=== PATIENT | female | born 1995 | race Caucasian/White ===

== ENCOUNTER 2018-06-02 00:18 | Emergency (ER) | payer BC, OTHER ==
[~2018-06-02] VITALS: Ht 167.6 cm; Wt 77.1 kg
--- OUTSIDE RECORDS SUMMARY | 2018-06-02 00:25 | XMS REPORT | Continuity of Care Document ---
Author Organization Unknown Address Unknown Allergies Active Description Code Type Severity Reaction Onset Reported/Identified Relationship to Patient Clinical Status Yes NKA Drug N/A N/A Yes NKA Drug N/A N/A Medications There is no data. Problems Date Dx Coded Attending Type Code Diagnosis Diagnosed By 09/08/2012 EDVIN WALKER DO V03.89 MENINGOCOCCAL DX 09/08/2012 EDVIN WALKER DO V04.89 GARDASIL (HPV) DX 09/08/2012 EDVIN WALKER DO V05.4 VARICELLA DX 09/08/2012 EDVIN WALKER DO V06.1 TDAP DX 11/19/2014 Rosendo Estrada Final Z11.1 Encounter for screening for respiratory tuberculosis Procedures There is no data. Results Test Result Range CMP - 08/30/17 10:35 GLUCOSE 94 mg/dL 65-99 UREA NITROGEN (BUN) 11 mg/dL 7-25 CREATININE 0.65 mg/dL 0.50-1.10 eGFR NON-AFR. MONGOLIAN 125 mL/min/1.73m2 > OR=60 eGFR 145 mL/min/1.73m2 > OR=60 BUN/CREATININE RATIO NOT APPLICABLE (calc) 6-22 SODIUM 138 mmol/L 135-146 POTASSIUM 4.4 mmol/L 3.5-5.3 CHLORIDE 103 mmol/L 98-110 CARBON DIOXIDE 25 mmol/L 20-31 CALCIUM 10.1 mg/dL 8.6-10.2 PROTEIN, TOTAL 7.2 g/dL 6.1-8.1 ALBUMIN 4.8 g/dL 3.6-5.1 GLOBULIN 2.4 g/dL (calc) 1.9-3.7 ALBUMIN/GLOBULIN RATIO 2.0 (calc) 1.0-2.5 BILIRUBIN, TOTAL 0.4 mg/dL 0.2-1.2 ALKALINE PHOSPHATASE 42 U/L 33-115 AST 10 U/L 10-30 ALT 11 U/L 6-29 Encounters ACCT No. Visit Date/Time Discharge Status Pt. Type Provider Facility Loc./Unit Complaint [id number] 01/18/2014 09:52:08 01/18/2014 23:59:59 CLS Outpatient ORLIN MORLEY OB/ [facility] Letty IUD insertion [id number] 01/18/2014 00:00:00 01/18/2014 23:59:59 CLS Outpatient Scanned Documents [id number] 11/20/2014 05:28:04 ACT Document Registration [id number] 09/08/2012 10:11:00 09/08/2012 23:59:59 [place] [id number] 08/30/2017 09:40:00 08/30/2017 23:59:59 CLS Outpatient EDVIN WALKER DO [facility] [id number] 08/30/2017 09:40:00 Document Registration [id number] 11/19/2014 13:32:00 11/19/2014 23:59:00 DIS Outpatient Rosendo Estrada Guarantor/person LAB LAB WORK [id number] 03/07/2014 13:43:20 Document Registration
--- OUTSIDE RECORDS SUMMARY | 2018-06-02 00:25 | XMS REPORT ---
Author Author KARYN HOWELL Organization [facility] Address [address] [place] [address] Care Team Providers Care Insurance Licensing Supervisor Name Role Phone HOWELLKIRSTEN CortesELE Unavailable PROBLEMS Type Condition ICD9-CM Code ZYN95-DW Code Onset Dates Condition Status SNOMED Code Problem Anxiety F41.9 Active 67546006 Problem Frequent headaches R51 Active 711735978 Problem VARICELLA DX V05.4 Active 204644422 Problem DTAP TEST V06.1 Active Problem MENINGOCOCCAL DX V03.89 Active 82960275 Problem GARDASIL (HPV) DX V04.89 Active 195334640 ALLERGIES No Known Allergies ENCOUNTERS Encounter Location Date Diagnosis [place] [id number] [place] [phone] Aug, Frequent headaches R51 ; Anxiety F41.9 and Generalized abdominal pain R10.84 [place] [address] [place] [id number] [place] [phone] Jul, Colitis K52.9 ; Periumbilical abdominal pain R10.33 ; Diarrhea, unspecified R19.7 ; Nausea with vomiting, unspecified R11.2 and Vaginal candidiasis B37.3 [place] [address] [place] [id number] [place] [phone] Nov, [place] [address] [place] [id number] [place] [phone] Aug, IMMUNIZATIONS No Known Immunizations SOCIAL HISTORY Never Assessed REASON FOR VISIT Vomiting and diarrhea x 2 days, running low grade fever ángel coley PLAN OF CARE Activity Details Follow Up prn Reason: VITAL SIGNS Height 65.5 in 2017-08-10 Weight 162.9 lbs 2017-08-10 Temperature 99.1 degrees Fahrenheit 2017-08-10 Heart Rate 80 bpm 2017-08-10 Respiratory Rate 18 2017-08-10 BMI 26.69 kg/m2 2017-08-10 Blood pressure systolic 118 mmHg 2017-08-10 Blood pressure diastolic 70 mmHg 2017-08-10 MEDICATIONS Medication Instructions Dosage Frequency Start Date End Date Duration Status Levofloxacin 750 MG Orally Once a day 1 tablet 24h Jul, Aug, 05 days Active Diflucan 150 MG Orally Once a day 1 tablet today and repeat in 10 days 24h Jul, Jul, 2 days Active Ondansetron 4 MG Orally 3 times a day PRN 1 tablet on the tongue and allow to dissolve as needed Jul, 07 days Active Metronidazole 500 mg Orally Twice a day 1 tablet 12h Jul, Aug, 05 days Active RESULTS Name Result Date Reference Range TEST, URINE (IN HOUSE) 2017-08-10 RESULTS Negative Lot # [id number] Control + Exp date 01/2019 Xray : KUB (IN HOUSE) 2017-08-10 PROCEDURES Procedure Date Ordered Result Body Site X-RAY EXAM ABDOMEN 1 VIEW August 10, 2017 URINE TEST August 10, 2017 INSTRUCTIONS MEDICATIONS ADMINISTERED No Known Medications MEDICAL (GENERAL) HISTORY Type Description Date Medical History Migraines Surgical History adenoidectomy 2007 Surgical History septoplasty 2007
--- OUTSIDE RECORDS SUMMARY | 2018-06-02 00:25 | XMS REPORT ---
Author Author MOIZ CESPEDES Organization [facility] Address [address] [place] [address] Care Team Providers Care Compensator Worker Name Role Phone MOIZ CESPEDES Unavailable PROBLEMS Type Condition ICD9-CM Code KZO24-UR Code Onset Dates Condition Status SNOMED Code Problem Anxiety F41.9 Active 88436276 Problem Frequent headaches R51 Active 833593402 Problem VARICELLA DX V05.4 Active 963011394 Problem DTAP TEST V06.1 Active Problem MENINGOCOCCAL DX V03.89 Active 80388399 Problem GARDASIL (HPV) DX V04.89 Active 153833817 ALLERGIES No Known Allergies ENCOUNTERS Encounter Location Date Diagnosis [id number] [place] [phone] Aug, Frequent headaches R51 ; Anxiety F41.9 and Generalized abdominal pain R10.84 [place] [id number] [place] [phone] Jul, Colitis K52.9 ; Periumbilical abdominal pain R10.33 ; Diarrhea, unspecified R19.7 ; Nausea with vomiting, unspecified R11.2 and Vaginal candidiasis B37.3 [place] [id number] [place] [phone] Nov, [place] [address] [place] [id number] [place] [phone] Aug, IMMUNIZATIONS No Known Immunizations SOCIAL HISTORY Never Assessed REASON FOR VISIT Nausea/Headache, PT reports the last 3 years she has been experincing migraines. PT notes it has worsened this past year that inlcudes 4 out of the 7 days she has bad ones including nausea.PT notes she is bloated all the time along with nausea -Connor CORDERO , PT reports she has alwayas had problems with her gut.-Connor CORDERO PLAN OF CARE Activity Details Follow Up Will call after lab Reason: VITAL SIGNS Height 65.5 in 2017-08-30 Weight 165.6 lbs 2017-08-30 Temperature 98.9 degrees Fahrenheit 2017-08-30 Heart Rate 92 bpm 2017-08-30 Respiratory Rate 18 2017-08-30 Oximetry on room air:99 % 2017-08-30 BMI 27.14 kg/m2 2017-08-30 Blood pressure systolic 120 mmHg 2017-08-30 Blood pressure diastolic 68 mmHg 2017-08-30 MEDICATIONS Medication Instructions Dosage Frequency Start Date End Date Duration Status Excedrin Migraine Active RESULTS No Results PROCEDURES Procedure Date Ordered Result Body Site ASSAY THYROID STIM HORMONE August 30, 2017 COMPLETE CBC W/AUTO DIFF WBC August 30, 2017 VENIPUNCT, ROUTINE* August 30, 2017 COMPREHEN METABOLIC PANEL August 30, 2017 INSTRUCTIONS MEDICATIONS ADMINISTERED No Known Medications MEDICAL (GENERAL) HISTORY Type Description Date Medical History Migraines Surgical History adenoidectomy 2007 Surgical History septoplasty 2007
[2018-06-02] MEDS ORDERED: FLUORESCEIN (FLUOR-I-STRIPS) 1 MG STRP ONE (00:30)
[2018-06-02] MEDS ORDERED: TETRACAINE 0.5% OPHTH SOLN 4 ML BTL (SINGLE DOSE ONLY) ONE (00:31)
--- NOTE | 2018-06-02 00:36 | ED EENT ---
History of Present Illness General Chief Complaint: Eye Problems Stated Complaint: RT EYE PAIN Source: patient Exam Limitations: no limitations History of Present Illness Date Seen by Provider: Jun 02, 2018 Time Seen by Provider: 00:23 Initial Comments Patient presents to ER by private conveyance with chief complaint of right eye itching and pain came up about 30-40 minutes prior to arrival. [place] PACs but she does not recall anything getting flung into her eye. She says it's itching and hurts about 3-4 out of 10. She's never had anything like this before. She has a history of seasonal allergies. She has not taken anything for this. No visual disturbances, blurry vision. Allergies and Home Medications Allergies Coded Allergies: No Known Drug Allergies (Unverified , 06/02/18) Patient Home Medication List Home Medication List Reviewed: Yes Review of Systems Review of Systems Constitutional: No chills, No diaphoresis, No fever Eyes: Denies Blindness, Denies Blurred Vision, Denies Drainage, Denies Decreased Acuity; Inflammation, Pain; Denies Photophobia, Denies Previous Injury Ears: Denies Dizziness, Denies Pain Nose: denies clots, denies congestion Past Oddgbux-Gcokdg-Baqarp Hx Patient Social History Alcohol Use: Denies Use Recreational Drug Use: No Smoking Status: Never a Smoker Recent Foreign Travel: No Contact w/Someone Who Travel: No Physical Exam Vital Signs Vital Signs - First Documented 06/02/18 00:26 Temp 97.2 Pulse 81 Resp 16 B/P (MAP) 139/84 (102) Pulse Ox 98 O2 Delivery Room Air Height, Weight, BMI Height: '" Weight: lbs. oz. kg; BMI Method: General Appearance: WD/WN, no apparent distress Eyes: right eye other (mild inflammation, conjunctival injection, scleral edema on the lateral half of the right eye.); left eye normal inspection; bilateral eye PERRL, bilateral eye EOMI Progress/Results/Core Measures Results/Orders My Orders Orders - LUIS RODRIGUEZ Fluorescein Strips (Npkaj-K-Yhutjf) (06/02/18 00:30) Tetracaine 0.5% Ophth Peggy Sdv (Tetracai (06/02/18 00:31) Tetracaine 0.5% Ophth Peggy Sdv (Tetracai (06/02/18 00:45) Fluorescein Strips (Gsytm-K-Ofqiud) (06/02/18 00:45) Medications Given in ED Current Medications Medications Dose Ordered Sig/Miranda Route Start Time Stop Time Status Last Admin Dose Admin Fluorescein Sodium 1 mg ONCE ONCE OU 06/02/18 00:45 06/02/18 00:46 06/02/18 00:35 1 MG Tetracaine HCl 4 ml ONCE ONCE OU 06/02/18 00:45 06/02/18 00:46 06/02/18 00:35 4 ML Vital Signs/I&O 06/02/18 00:26 Temp 97.2 Pulse 81 Resp 16 B/P (MAP) 139/84 (102) Pulse Ox 98 O2 Delivery Room Air Progress Progress Note : Time: 00:35 Progress Note Looks to be allergic could be viral so we plan to do forcing staining with tetracaine under a Barkley lamp looking for herpetic lesions. If not we'll put her on a steroid/antibacterial drop. She can follow up with optometry in 1-2 days. Barkley lamp examination does not demonstrate any ulceration. Just some mild edema of the right eye. Visual acuity is normal. Departure Impression Primary Impression: Allergic conjunctivitis of right eye Disposition: HOME, SELF-CARE Condition: Stable Departure-Patient Inst. Decision time for Depature: 00:43 Referrals: JH NOGUERA OD,LOCAL PHYSICIAN (PCP) Primary Care Physician Patient Instructions: How to Use Eye Drops, Conjunctivitis (Noninfectious Pinkeye) (DC) Add. Discharge Instructions: back up scan coordinator some eye saline and rinse your eyes out every hour for the next 2-3 days. back up scan coordinator the gatiflox/prenisolone from the pharmacy and put four drops in your right eye every 6 hours. Use Tylenol and/or ibuprofen as well as cold compresses for discomfort. If you have itching sensation you can use Claritin or Zyrtec in addition to Benadryl as necessary. Follow-up with the emergency medicine nurse practitioner in the next 1-2 days by calling their office for an appointment tomorrow morning. All discharge instructions reviewed with patient and/or family. Voiced understanding. Scripts Gatifloxacin/Prednisolone (Prednisolone 1%-Gatiflox 0.5%) 3.5 Ml Drops.susp 2 ML OP Q6H for 7 Days, #1 EA 0 Refills Prov: LUIS RODRIGUEZ 06/02/18 Copy Copies To 1: JH NOGUERA OD LUIS RODRIGUEZ Jun 02, 2018 00:35
[2018-06-02] MEDS ORDERED: TETRACAINE 0.5% OPHTH SOLN 4 ML BTL (SINGLE DOSE ONLY) OU ONE (00:45)
[2018-06-02] MEDS ORDERED: FLUORESCEIN (FLUOR-I-STRIPS) 1 MG STRP OU ONE (00:45)
[2018-06-02] MEDS ORDERED: GATI3.5D2 OP (00:51)
[2018-06-02 01:00] VITALS: BP 117/77
== END 2018-06-02 01:00 | disposition home or self-care (01) ==
LOC: EDUNIT# 00:18 → ER 00:21
DX: H10.11 Acute atopic conjunctivitis, right eye (principal)
CPT/HCPCS: 99282

== ENCOUNTER → 2018-07-18 | Outpatient (CLI) | payer BC ==
[~2018-07-18] MED LIST: GATI3.5D2 OP
--- NOTE | 2018-07-18 11:10 | Diagnostic Imaging Report ---
INDICATION: Left knee pain COMPARISON: None available. TECHNIQUE: Thre radiographs of the left knee are dated 07/18/2018. FINDINGS: No acute fracture or dislocation. No destructive osseous process. The joint spaces are well-maintained. No significant osteophytosis. A moderate sized knee joint effusion is present. No suspicious radiopaque foreign body. IMPRESSION: No acute osseous abnormality although a moderate sized knee joint effusion is present. Dictated by: Dictated on workstation # [id number]
== END ==
LOC: RAD 10:46
PROVIDERS: ATTEND Nurse Practitioner Family
DX: M25.562 Pain in left knee (principal)
CPT/HCPCS: 73562

== ENCOUNTER → 2019-07-25 | Outpatient (CLI) | payer BC ==
--- NOTE | 2019-07-25 11:29 | Diagnostic Imaging Report ---
INDICATION: Right lower quadrant pain Ultrasound of the periappendiceal area was performed. There is no abnormal fluid collection or overt mass lesion. The appendix was not visualized sonographically. IMPRESSION: Nonvisualized appendix. No sonographically evident abnormality in the right lower quadrant. Dictated by: Dictated on workstation # [id number]
--- NOTE | 2019-07-25 11:31 | Diagnostic Imaging Report ---
INDICATION: Right-sided abdominal pain. EXAMINATION: Gallbladder sonography performed in routine fashion. FINDINGS: The liver shows normal echogenicity with no focal lesions. Portal vein is patent with hepatopedal flow. Gallbladder is unremarkable with no stones or significant wall thickening. Common duct measured 4.4 mm. Pancreas is not well seen due to overlying gas. IVC appeared normal. Aorta was obscured by overlying gas. Right kidney was normal in appearance, 11.1 cm in length. There is no ascites. Sonographic Christopher's sign was negative. IMPRESSION: Unremarkable ultrasound of the right upper quadrant. Dictated by: Dictated on workstation # [id number]
--- NOTE | 2019-07-25 11:41 | Diagnostic Imaging Report ---
INDICATION: Pelvic pain. TECHNIQUE: Pelvic sonography was performed with transabdominal and transvaginal views. FINDINGS: The uterus measures 6.8 x 3.3 x 4.2 cm and appears anteverted. There is an IUD in place in the uterus in the endometrial cavity in good position. The endometrium measures 4 mm in thickness. The right ovary was not visualized. The left ovary measures 3.4 x 2.2 x 3.3 cm and contains a simple cyst measuring 2.1 x 1.6 x 1.8 cm. There is color flow to the left ovary. There is no free fluid. IMPRESSION: Normal-appearing uterus. IUD in place in the uterus appears to be in good position. The right ovary is not visualized. The left ovary contains a 2.1 cm simple cyst. There is no free fluid. Dictated by: Dictated on workstation # [id number]
== END ==
LOC: RAD 08:07
PROVIDERS: ATTEND Nurse Practitioner Family
DX: N83.202 Unspecified ovarian cyst, left side (principal); Z97.5 Presence of (intrauterine) contraceptive device
CPT/HCPCS: 76705; 76830; 76856

== ENCOUNTER 2021-12-17 08:28 | Emergency (ER) | payer BC, OTHER ==
[~2021-12-17] VITALS: Ht 167 cm; Wt 82.0 kg
[2021-12-17 09:27] LABS: BASOPHILS # (AUTO) 0.1 10^3/uL (0.0-0.1); BASOPHILS % (AUTO) 1 % (0-10); EOSINOPHILS # (AUTO) 0.2 10^3/uL (0.0-0.3); EOSINOPHILS % (AUTO) 1 % (0-10); HEMATOCRIT 42 % (35-52); HEMOGLOBIN 13.8 g/dL (11.5-16.0); LYMPHOCYTES # (AUTO) 3.5 10^3/uL (1.0-4.0); LYMPHOCYTES % (AUTO) 22 % (12-44); MEAN CORPUSCULAR HEMOGLOBIN 30 pg (25-34); MEAN CORPUSCULAR HGB CONC 33 g/dL (32-36); MEAN CORPUSCULAR VOLUME 92 fL (80-99); MEAN PLATELET VOLUME 12.2 fL (9.0-12.2); MONOCYTES # (AUTO) 1.2 10^3/uL (0.0-1.0); MONOCYTES % (AUTO) 8 % (0-12); NEUTROPHILS # (AUTO) 11.1 10^3/uL (1.8-7.8); NEUTROPHILS % (AUTO) 68 % (42-75); WHITE BLOOD COUNT 16.2 10^3/uL (4.3-11.0)
[2021-12-17] MEDS ORDERED: HYOSCYAMINE 0.125 MG (LEVSIN) TAB SL ONE (09:30)
[2021-12-17] MEDS ORDERED: ONDANSETRON 4 MG/2 ML (SDV) Z0FRAN IVP ONE (09:30)
[2021-12-17] MEDS ORDERED: LACTATED RINGERS 1,000 ML IV ONE (09:30)
[2021-12-17 09:31] LABS: PLATELET COUNT 143 10^3/uL (130-400)
[2021-12-17 09:47] LABS: BAND NEUTROPHILS 0 %; BASOPHILS % (MANUAL) 0 %; EOSINOPHILS % (MANUAL) 0 %; LYMPHOCYTES % (MANUAL) 26 %; MONOCYTES % (MANUAL) 5 %; NEUTROPHILS % (MANUAL) 69 %; RBC MORPH NORMAL
[2021-12-17 10:13] LABS: BILIRUBIN,URINE NEGATIVE (NEGATIVE); CLARITY,URINE CLEAR; COLOR,URINE YELLOW; GLUCOSE, URINE (UA) NEGATIVE (NEGATIVE); KETONES,URINE NEGATIVE (NEGATIVE); LEUKOCYTE ESTERASE ,URINE NEGATIVE (NEGATIVE); NITRITE,URINE NEGATIVE (NEGATIVE); PROTEIN,URINE NEGATIVE (NEGATIVE)
[2021-12-17 10:29] LABS: BACTERIA,URINE NEGATIVE /HPF; SQUAMOUS EPITHELIAL CELL,UR 0-2 /HPF
[2021-12-17 10:52] LABS: BILIRUBIN,TOTAL 0.4 MG/DL (0.1-1.0); CALCIUM 8.9 MG/DL (8.5-10.1); CREATININE SERUM 0.79 MG/DL (0.60-1.30); POTASSIUM 3.8 MMOL/L (3.6-5.0); TOTAL PROTEIN 6.5 GM/DL (6.4-8.2)
[2021-12-17] MEDS ORDERED: fentaNYL INJ 100 MCG/2 ML AMP IVP ONE (11:00)
[2021-12-17] MEDS ORDERED: KETOROLAC 30 MG/ML VIAL IVP ONE (12:15)
--- NOTE | 2021-12-17 12:32 | Diagnostic Imaging Report ---
PROCEDURE: Pelvic comp/transvaginal sonogram. TECHNIQUE: Complete transabdominal and transvaginal pelvic ultrasound was performed. In addition, limited pelvic Doppler was performed. INDICATION: Left lower quadrant pain. Uterus is anteverted measuring 7.5 x 3.8 x 4.6 cm. Endometrium is 3 mm in thickness. IUD appears to be centered in the endometrial canal. No myometrial mass is detected. Right ovary measures 4.0 x 1.6 x 2.7 cm and the left ovary measures 3.1 x 1.6 x 3.1 cm. Ovaries contain small follicles. There is blood flow to both ovaries. No adnexal mass is identified. There is trace free fluid present. IMPRESSION: Essentially unremarkable transabdominal and transvaginal pelvic ultrasound. Dictated by: Dictated on workstation # [id number]
[2021-12-17] MEDS ORDERED: HYOS0.1283 SL (12:57)
[2021-12-17] MEDS ORDERED: ACHD5005 PO (12:57)
--- NOTE | 2021-12-17 12:58 | ED Abdominal Pain ---
General Chief Complaint: Back Problems Stated Complaint: BACK/ABD PAIN Nursing Triage Note: PT AMB TO RM 3 PT CO OF L SIDED BACK PAIN, SUDDEN ONSET 0230 THIS AM. PT STATES PAIN RAIDIATES INTO L LOWER ABD. RATES PAIN7/10. PT ALSO CO OF NAUSEA. PT STATES ALSO HAS HAD COLD FOR A WEEK AND IS TAKING AMOXICILLIN AND PREDNISONE. PT STATES TESTED - FOR COVID Source of Information: Patient Exam Limitations: No Limitations History of Present Illness Date Seen by Provider: Dec 17, 2021 Time Seen by Provider: 09:18 Allergies and Home Medications Allergies Coded Allergies: No Known Drug Allergies (Unverified , 06/02/18) Patient Home Medication List Gatifloxacin/Prednisolone (Prednisolone 1%-Gatiflox 0.5%) 3.5 Ml Drops.susp, 2 ML OP Q6H Prescribed by: LUIS RODRIGUEZ on 06/02/18 0051 Past Wqcjcjw-Eicpeg-Vjdxxe Hx Patient Social History Use of E-Cig and/or Vaping dev: Yes E-Cig or Vaping type used: Nicotine Substance use?: No Alcohol Use?: Yes Alcohol Frequency: Once in a while Immunizations Up To Date Influenza Vaccine Up-to-Date: Yes; Up-to-Date First/Initial COVID19 Vaccinat: 2020 Second COVID19 Vaccination Joey: 2019 COVID19 Vaccine Costume Technician: UNKNOWN Seasonal Allergies Seasonal Allergies: No Past Medical History Surgery/Hospitalization HX: IBS, SEPTUM, ADNOIDS Surgeries: No Respiratory: No Cardiac: No Neurological: No Genitourinary: No Gastrointestinal: No Musculoskeletal: No Endocrine: No HEENT: No Cancer: No Psychosocial: No Integumentary: No Physical Exam Vital Signs Vital Signs - First Documented 12/17/21 08:30 Temp 36.5 Pulse 87 Resp 18 B/P (MAP) 139/87 (104) Pulse Ox 98 Capillary Refill : Less Than 3 Seconds Height/Weight/BMI Height: 5'6.00" Weight: 170lbs. oz. 77.074655cz; 29.00 BMI Method:Stated Progress/Results/Core Measures Results/Orders Lab Results Laboratory Tests Test 12/17/21 09:18 12/17/21 10:00 12/17/21 10:21 Range/Units White Blood Count 16.2 H 4.3-11.0 10^3/uL Red Blood Count 4.57 3.80-5.11 10^6/uL Hemoglobin 13.8 11.5-16.0 g/dL Hematocrit 42 35-52 % Mean Corpuscular Volume 92 80-99 fL Mean Corpuscular Hemoglobin 30 25-34 pg Mean Corpuscular Hemoglobin Concent 33 32-36 g/dL Red Cell Distribution Width 11.9 10.0-14.5 % Platelet Count 143 130-400 10^3/uL Mean Platelet Volume 12.2 9.0-12.2 fL Immature Granulocyte % (Auto) 1 % Neutrophils (%) (Auto) 68 42-75 % Lymphocytes (%) (Auto) 22 12-44 % Monocytes (%) (Auto) 8 0-12 % Eosinophils (%) (Auto) 1 0-10 % Basophils (%) (Auto) 1 0-10 % Neutrophils # (Auto) 11.1 H 1.8-7.8 10^3/uL Lymphocytes # (Auto) 3.5 1.0-4.0 10^3/uL Monocytes # (Auto) 1.2 H 0.0-1.0 10^3/uL Eosinophils # (Auto) 0.2 0.0-0.3 10^3/uL Basophils # (Auto) 0.1 0.0-0.1 10^3/uL Immature Granulocyte # (Auto) 0.1 0.0-0.1 10^3/uL Neutrophils % (Manual) 69 % Lymphocytes % (Manual) 26 % Monocytes % (Manual) 5 % Eosinophils % (Manual) 0 % Basophils % (Manual) 0 % Band Neutrophils 0 % Blood Morphology Comment NORMAL Serum Test, Qualitative NEGATIVE NEGATIVE Urine Color YELLOW Urine Clarity CLEAR Urine pH 6.0 5-9 Urine Specific [place] <=1.005 1.016-1.022 Urine Protein NEGATIVE NEGATIVE Urine Glucose (UA) NEGATIVE NEGATIVE Urine Ketones NEGATIVE NEGATIVE Urine Nitrite NEGATIVE NEGATIVE Urine Bilirubin NEGATIVE NEGATIVE Urine Urobilinogen 0.2 < = 1.0 MG/DL Urine Leukocyte Esterase NEGATIVE NEGATIVE Urine RBC (Auto) NEGATIVE NEGATIVE Urine RBC NONE /HPF Urine WBC NONE /HPF Urine Squamous Epithelial Cells 0-2 /HPF Urine Crystals NONE /LPF Urine Bacteria NEGATIVE /HPF Urine Casts NONE /LPF Urine Mucus NEGATIVE /LPF Urine Culture Indicated NO Sodium Level 139 135-145 MMOL/L Potassium Level 3.8 3.6-5.0 MMOL/L Chloride Level 106 98-107 MMOL/L Carbon Dioxide Level 28 21-32 MMOL/L Anion Gap 5 5-14 MMOL/L Blood Urea Nitrogen 10 7-18 MG/DL Creatinine 0.79 0.60-1.30 MG/DL Estimat Glomerular Filtration Rate 105 BUN/Creatinine Ratio 13 Glucose Level 97 70-105 MG/DL Calcium Level 8.9 8.5-10.1 MG/DL Corrected Calcium 8.9 8.5-10.1 MG/DL Total Bilirubin 0.4 0.1-1.0 MG/DL Aspartate Amino Transf (AST/SGOT) 12 5-34 U/L Alanine Aminotransferase (ALT/SGPT) 15 0-55 U/L Alkaline Phosphatase 37 L 40-136 U/L C-Reactive Protein High Sensitivity 0.17 0.00-0.50 MG/DL Total Protein 6.5 6.4-8.2 GM/DL Albumin 4.0 3.2-4.5 GM/DL My Orders Orders - KORI BRIZUELA MD Ua Culture If Indicated (12/17/21 09:18) Cbc With Automated Diff (12/17/21 09:19) Comprehensive Metabolic Panel (12/17/21 09:19) Hcg,Qualitative Serum (12/17/21 09:19) Ed Iv/Invasive Line Start (12/17/21 09:19) Lactated Ringers (Lr 1000 Ml Iv Solution (12/17/21 09:30) Ondansetron Injection (Zofran Injectio (12/17/21 09:30) Hyoscyamine Sl Tablet (Levsin Sl Tablet) (12/17/21 09:30) Manual Differential (12/17/21 09:18) Hs C Reactive Protein (12/17/21 10:14) Us Non Ob Pelvis Comp/Transvag (12/17/21 10:42) Fentanyl Inj (Sublimaze Injection) (12/17/21 11:00) Ketorolac Injection (Toradol Injection) (12/17/21 12:15) Medications Given in ED Current Medications Medications Dose Ordered Sig/Miranda Route Start Time Stop Time Status Last Admin Dose Admin Fentanyl Citrate 50 mcg ONCE ONCE IVP 12/17/21 11:00 12/17/21 11:01 DC 12/17/21 11:03 50 MCG Hyoscyamine Sulfate 0.25 mg ONCE ONCE SL 12/17/21 09:30 12/17/21 09:31 DC 12/17/21 10:44 0.25 MG Ketorolac Tromethamine 30 mg ONCE ONCE IVP 12/17/21 12:15 12/17/21 12:16 DC 12/17/21 12:39 30 MG Lactated Ringer's 1,000 ml @ 0 mls/hr Q0M ONCE IV 12/17/21 09:30 12/17/21 09:31 DC 12/17/21 09:29 1,000 MLS/HR Ondansetron HCl 8 mg ONCE ONCE IVP 12/17/21 09:30 12/17/21 09:31 DC 12/17/21 09:28 8 MG Vital Signs/I&O 12/17/21 08:30 Temp 36.5 Pulse 87 Resp 18 B/P (MAP) 139/87 (104) Pulse Ox 98 Blood Pressure Mean: 104 Departure Impression Primary Impression: Left lower quadrant pain Additional Impressions: Abdominal cramping Diarrhea Qualified Codes: R19.7 - Diarrhea, unspecified Disposition: 01 HOME, SELF-CARE Condition: Improved Departure-Patient Inst. Decision time for Depature: 12:56 Referrals: JONAS MALDONADO DO (PCP/Family) Primary Care Physician Patient Instructions: Severe Abdominal Pain Add. Discharge Instructions: Drink plenty of clear liquids and adhere to a clear liquid diet for the remainder of today. If you are feeling improved tomorrow, gradually advance her diet with small quantities of bland food as tolerated. For pain you may take ibuprofen up to 600 mg every 6 hours as needed. Add either Tylenol (acetaminophen) 1000 mg every 6 hours or hydrocodone if needed for additional pain relief. For bowel cramping you may use Levsin (hyoscyamine) as prescribed. Follow-up with your primary care provider soon as possible if symptoms do not completely resolve within 1 to 2 days. Return to the emergency room if you have worsening symptoms despite following these instructions. All discharge instructions reviewed with patient and/or family. Voiced understanding. Scripts Hydrocodone/Acetaminophen (Hydrocodone-Acetamin 5-325 mg) 5 Mg-325 Mg Tablet 1 TAB PO Q4H PRN for PAIN-BREAKTHROUGH, #8 TAB Prov: KORI BRIZUELA MD 12/17/21 Hyoscyamine Sulfate (Levsin-Sl) 0.125 Mg Tab.subl 1-2 TAB SL Q4H PRN for CRAMPS, #10 TAB 0 Refills Prov: KORI BRIZUELA MD 12/17/21 KORI BRIZUELA MD Dec 17, 2021 12:58
[2021-12-17 13:14] VITALS: BP 122/70
== END 2021-12-17 13:14 | disposition home or self-care (01) ==
LOC: EDUNIT# 08:28 → ER 08:31
DX: R10.32 Left lower quadrant pain (principal); R19.7 Diarrhea, unspecified; F17.290 Nicotine dependence, other tobacco product, uncomplicated; Z32.02 Encounter for pregnancy test, result negative
CPT/HCPCS: 36415; 76830; 76856; 80053; 81000; 84703; 85007; 85027; 86141